=== PATIENT | female | born 1960 | race Caucasian/White ===

== ENCOUNTER 2020-12-06 09:23 | Emergency (ER) | payer OTHER, SELFPAY ==
[2020-12-06] VITALS (7 sets, daily range): BP systolic 130–178; BP diastolic 73–99; PULSE 80–114; RESP 14–25; TEMP 35.5–36.9; O2SAT 93–97; BMI 37.4
--- NOTE | 2020-12-06 09:56 | RAD_ITS ---
STUDY: X-RAY CHEST REASON FOR EXAM: Female, 60 years old. Chest pain TECHNIQUE: Single AP portable view of the chest. COMPARISON: None. FINDINGS: EKG electrodes are seen. Mild increased markings in the lateral right mid lung as well as in the lateral aspect of the left upper lobe. Early infiltrate should be ruled out. There is no demonstrated pleural abnormality. Normal size heart. Normal mediastinum and jorje. Normal visualized pulmonary arteries. There is atherosclerotic tortuosity of the aortic arch and descending thoracic aorta. Normal visualized thoracic spine. Normal visualized ribs, clavicles, and shoulders. There is no demonstrated abnormality of the visualized soft tissue structures of the upper abdomen. RAD/Chest 1 View (Portable) IMPRESSION: Findings suggestive of early infiltrates in the lateral aspect of the right midlung as well as in the peripheral lateral aspect of the left upper lobe. Follow-up is suggested. Electronically Signed: Ananda Isaac MD at 10:57 EDT , Service support ,
--- NOTE | 2020-12-06 09:56 | EKG12_ITS ---
Test Reason : SOB Blood Pressure : / mmHG Vent. Rate : 089 BPM Atrial Rate : 089 BPM P-R Int : 160 ms QRS Dur : 078 ms QT Int : 366 ms P-R-T Axes : 040 -10 -10 degrees QTc Int : 445 ms Normal sinus rhythm Normal ECG Confirmed by KENDY MAYA, FAUSTO ([id number]), editorial manager DOMINGA JENSEN ([id number]) on 12/07/2020 9:22:41 AM Referred By: FRED Confirmed By:FAUSTO LARRY MD
--- NOTE | 2020-12-06 09:56 | EDS_ITS ---
HPI History of Present Illness Chief Complaint: Shortness of Breath Informant: patient Onset/Context/Timing Onset: Days Context: gradual Timing: Continuous Quality: Positive for Dyspnea on exertion Current Severity: Mild Maximum Severity: Mild Worsened by: Exertion and Lying flat Associated Symptoms chills; Negative for cough, fever or sore throat Chest Pain: Positive for None Narrative Narrative: 60-year-old female states she is currently on no medications and really has no sniffing past medical history. No history of cardiac disease. No history of DVT or PE or recent risk factors. States she does not felt well for about a week. She has been off of work for about a week. This has had subjective chills but no fever. And she has been short of breath. Denies any chest pain or any hemoptysis. She denies any leg pain or swelling. PE Risk Factors: Negative for Cancer, OCP + Smoking + > 35, Prior DVT or PE, Recent immobilization, Recent surgery and Recent travel Prior similar symptoms: No Recent Illness/Hospitalization: No PFSH PFSH Medical History no medical history no medical history Home Medications dexamethasone [Decadron] 6 mg PO DAILY 7 Days #7 tab 12/06/20 [Rx Last Taken Unknown] Allergy/AdvReac Type Severity Reaction Status Date / Time No Known Allergies Allergy Verified 12/06/20 09:26 Social History Smoking Status: Former smoker ROS ROS ED Review of Systems ROS Unobtainable: Denies due to encephalopathy Constitutional Constitutional ED: Reports chills; Denies fever(s) Eyes Eyes: Denies blurry vision or change in vision ENT ENT ED: Denies ear pain or sore throat Cardiovascular Cardiovascular: Denies chest pain or palpitations Respiratory/Chest Respiratory/Chest: Reports dyspnea; Denies cough Gastrointestinal Gastrointestinal: Denies abdominal pain, diarrhea, nausea or vomiting Genitourinary Genitourinary ED: Denies dysuria or hematuria Musculoskeletal Musculoskeletal: Denies myalgias Integumentary Denies rash Neurologic Neurologic: Denies headache(s) Psychiatric Psychiatric: Denies depression Endocrine Endocrinology: Denies polyuria Hematologic/Lymphatic Hematologic/Lymphatic: Denies easy bruising Allergic/Immunologic Allergic/Immunologic ED: Denies urticaria EXAM Physical Exam Narrative Exam Narrative: 60-year-old female no acute distress. Vital signs stable afebrile. Pulse ox 97% on room air no signs hypoxia. HEENT exam unremarkable. Lungs are clear equal symmetrical. Heart regular rhythm rate about 100 no murmur. Abdomen soft nontender. Moving all 4 extremities. Calves are nontender without edema or cords. Neurologically she is awake alert with no focal motor deficits. Const Vital Signs: 12/06/20 09:24 12/06/20 09:36 12/06/20 10:08 Temperature 96 F L 98.2 F Temperature Source Temporal Oral Pulse Rate 114 H 97 Respiratory Rate 18 21 H Respiratory Effort Short of Breath Respiratory Depth Normal Respiratory Pattern Normal Blood Pressure 178/99 H 178/99 H Blood Pressure Mean 125 125 Pulse Ox 97 95 95 Oxygen Delivery Method Room Air Room Air Room Air 12/06/20 11:36 12/06/20 13:05 12/06/20 14:20 Temperature 98.4 F 98.3 F Temperature Source Oral Oral Pulse Rate 84 80 85 Respiratory Rate 14 25 H 21 H Respiratory Effort Respiratory Depth Respiratory Pattern Blood Pressure 161/89 H 130/73 H 149/91 H Blood Pressure Mean 113 92 110 Pulse Ox 94 95 93 Oxygen Delivery Method Room Air Room Air Room Air Positive well nourished and well developed; Negative for cachectic, contractures or unkempt General Appearance ED: well developed and NAD; Negative for unkempt, cachectic, contractures or pallor Nutritional Appearance: Negative for cachectic HEENT Reports moist mucous membranes atraumatic; Negative for trauma or tenderness Eyes PERRL and EOMs intact bilaterally Neck no lymphadenopathy, supple, no meningeal signs and no JVD General: Negative for tenderness Resp normal respiratory effort and clear to auscultation bilaterally Auscultation: Negative for rales, rhonchi or wheezes Cardio regular rate, regular rhythm, S1 normal heart sound, S2 normal heart sound and no murmurs GI non-tender, non-distended and no masses Auscultation: normoactive bowel sounds Palpation: soft; Negative for tender, guarding or rebound tenderness present Back/Spine no CVA tenderness and normal to inspection Extremity normal to inspection General Extremety ED: Negative for edema or tenderness General Extremity: Negative for edema Neuro oriented x3 and CN's II-XII intact bilaterally Sensorium / Orientation: alert, oriented to person, oriented to place and oriented to time; Negative for confused, lethargic or stuporous Motor Exam: strength 5/5 throughout Psych mental status grossly normal Appearance: Negative for unkempt Mood & Affect: Negative for depressed or tearful Thought Process: No normal thought process Skin no wounds and No skin turgor normal General Skin Exam: Negative for jaundice or pallor Lesions: no lesions Rashes: no rashes MDM MDM MDM Narrative Medical decision making narrative: 60-year-old complaint shortness of breath. This may be viral illness she will be tested for Covid. Also she undergo cardiac work-up. She has no DVT or PE risk factors or history. Repeat exam patient doing well at 2:40 PM. We are going to start her on daily Decadron. She can be outpatient follow-up. She is clinically doing well. She meets no criteria for admission and she is too far into her symptoms for monoclonal antibody therapy. Lab Data Attestation: I reviewed the patient's lab results. Lab results narrative: CBC normal white count 8 hemoglobin 14.8. Electrolytes potassium 3.1 gap 9 normal BUN and creatinine. Glucose of 113. Troponin negative at 9 Labs: Laboratory Results - last 24 hr 12/06/20 12/06/20 10:03 10:03 WBC 8.1 RBC 5.08 Hgb 14.8 Hct 42.9 MCV 84.4 MCH 29.1 MCHC 34.5 RDW Std Deviation 38.4 RDW Coeff of Ezequiel 12.4 Plt Count 261 MPV 10.2 Immature Gran % (Auto) 0.600 Neut % (Auto) 74.0 H Lymph % (Auto) 14.3 L [place] % (Auto) 9.8 Eos % (Auto) 1.1 Baso % (Auto) 0.2 Absolute Neuts (auto) 6.0 Absolute Lymphs (auto) 1.16 Nucleated RBC % 0 Sodium 138 Potassium 3.1 L Chloride 103 Carbon Dioxide 26.0 Anion Gap 9 BUN 10 Creatinine 0.72 Estim Creat Clear Calc 79.79 Est GFR (MDRD) Af Amer 106 Est GFR (MDRD) Non-Af 87 BUN/Creatinine Ratio 13.9 Glucose 113 H Calcium 8.9 Troponin I High Sens 9 Radiography Chest X-Ray - ED: 1 View, Read by ED Physician, Read by Radiologist, Mediastinum, Right Infiltrate and Left Infiltrate Diagnostic Testing: Clinical Impression(s) from Imaging Studies Chest X-Ray 12/06/20 09:56 IMPRESSION: Findings suggestive of early infiltrates in the lateral aspect of the right midlung as well as in the peripheral lateral aspect of the left upper lobe. Follow-up is suggested. Electronically Signed: Ananda Isaac MD at 10:57 EDT , Service support , Chest x-ray single view portable interpreted by the radiologist and myself shows bilateral infiltrates consistent with possible Covid pneumonitis. Rhythm Strip Rhythm Strip: Sinus Rhythm Ectopy: None EKG Initial EKG: Attestation: I personally reviewed and interpreted this EKG as follows: Interpretation: Sinus Rhythm and No Acute Injury Pattern Comments: Normal sinus rhythm rate 89 no acute signs of MN or ischemia. Discharge Plan Triage Chief Complaint: Shortness of Breath ED Provider: Rhett Ferraro Dx/Rx/DC Orders Clinical Impression: COVID-19 Instructions: Human Coronaviruses Prescriptions: New dexamethasone [Decadron] 6 mg tablet 6 mg PO DAILY 7 Days Qty: 7 RF: 0 Primary Care Provider: Cristobal Azul Referrals: Cristobal Azul MD [Primary Care Provider] - 1 Week if not improving Activity Restrictions/Additional Instructions: Clinically I think you have COVID-19. Your rapid antigen test was negative. We also sent off a Covid PCR test which will take several hours to run. You will be treated with daily Decadron which is a steroid. Follow-up with your doctor if not improving or return emergency department if you are feeling a lot worse. Disposition Disposition: Home, Self Care
--- NOTE | 2020-12-06 09:59 | NURSING ---
NO OLD EKGS
[2020-12-06 10:18] LABS: Absolute Lymphocyte Count 1.16 X10^3/uL (0.83-4.51); Basophil# 0.02 X10^3/uL; Basophil% 0.2 % (0-1); Eosinophil# 0.09 X10^3/uL; Eosinophils% 1.1 % (0-5); Hematocrit 42.9 % (37-47); Hemoglobin 14.8 g/dL (12.0-15.0); Lymphocyte # 1.16 X10^3/ul (0.83-4.51); Lymphocyte % 14.3 % (19-41); Mean Corp Hgb Conc 34.5 g/dL (32-36); Mean Corpuscular Hgb 29.1 pg (27.0-32.0); Mean Corpuscular Volume 84.4 fL (81-99); Mean Platelet Vol. 10.2 fl (6.2-12.0); Monocyte# 0.79 X10^3/uL; Monocyte% 9.8 % (0-10); NRBC Flagged by Analyzer 0 % (0-5); Neutrophil # 5.98 X10^3/uL (2.7-7.7); Platelet Count 261 K/mm3 (150-450); RBC Distribution Width CV 12.4 % (11.6-14.6); RBC Distribution Width SD 38.4 fl (35.1-43.9); Red Blood Count 5.08 M/mm3 (4.2-5.4); White Blood Count 8.1 K/mm3 (4.4-11.0)
[2020-12-06 10:34] LABS: Anion Gap 9 (5-15); BUN 10 mg/dL (7-18); BUN/Creat Ratio 13.9 RATIO (10-20); Calcium,Total 8.9 mg/dL (8.5-10.1); Chloride 103 mmol/L (98-107); Creatinine, Serum 0.72 mg/dL (0.55-1.02); EST Glomerular Filtration Rate 87 mL/min (>60); Est Glom Filt Rate - Afr Amer 106 mL/min (>60); Estimated Creatinine Clearance 79.79 ml/min; Glucose 113 mg/dL (74-106); Potassium 3.1 mmol/L (3.5-5.1); Sodium Level 138 mmol/L (136-145); Troponin-I HS 9 pg/mL (3.0-54.0)
--- NOTE | 2020-12-06 15:32 | ED.RN ---
This nurse received call from [facility] stating that they are unable to run the PCR covid test with the sample sent previously and that a new sample needs to be obtained. This nurse called and left message for the patient with request that she come back in to the ED.
== END 2020-12-06 14:56 | disposition home or self-care (01) ==
PROVIDERS: Emergency Provider Emergency Medicine; PCP Family Medicine
DX: U07.1 COVID-19 (principal); Z87.891 Personal history of nicotine dependence
CPT/HCPCS: 71045; 80048; 84484; 85025; 87426; 93005; 99285

== ENCOUNTER → 2021-09-02 | Outpatient (CLI) | payer OTHER, SELFPAY ==
[2021-09-02 11:45] LABS: ALB/GLOB Ratio 0.8 RATIO (0.9-2.4); AST(SGOT) 22 U/L (15-37); Alanine Aminotransfer ALT/SGPT 32 U/L (13-56); Albumin, Serum 3.4 g/dL (3.2-5.0); Alkaline Phosphatase 78 U/L (45-117); Anion Gap 4 (5-15); BUN 13 mg/dL (7-18); BUN/Creat Ratio 18.8 RATIO (10-20); Calcium,Total 8.7 mg/dL (8.5-10.1); Chloride 110 mmol/L (98-107); Cholesterol 172 mg/dL (200); Creatinine, Serum 0.69 mg/dL (0.55-1.02); EST Glomerular Filtration Rate 92 mL/min (>60); Est Glom Filt Rate - Afr Amer 111 mL/min (>60); Globulin 4.1 g/dL (2.2-4.2); Glucose 97 mg/dL (74-106); High Density Lipoprotein 54 mg/dL; Protein, Total 7.5 g/dL (6.4-8.2); Sodium Level 140 mmol/L (136-145); Triglycerides 129 mg/dL; Very Low Density Lipoprotein 26 mg/dL (5-40)
== END | disposition home or self-care (01) ==
LOC: LAB 09:39
PROVIDERS: PCP Internal Medicine; Referring Provider Internal Medicine; Visit Provider Internal Medicine
DX: Z13.6 Encounter for screening for cardiovascular disorders (principal)
CPT/HCPCS: 36415; 80053; 80061

== ENCOUNTER → 2021-09-15 | Outpatient (CLI) | payer OTHER, SELFPAY ==
--- NOTE | 2021-09-15 08:20 | BI_ITS ---
MAMMOGRAPHY - BILATERAL SCREENING REASON FOR EXAM: Female, 60 years old. Routine annual screening examination. PERTINENT HISTORY: Non-contributory. TECHNIQUE: Digital bilateral breast diamante (3D mammographic acquisition) in the CC and MLO projections. 2-D mediolateral oblique (MLO) and craniocaudad (CC) views of both breasts were obtained. CAD: Full Field Digital Mammography with Computer Added Detection was performed. COMPARISON: Comparison is made with prior chest examination dated 01/18/2015. FINDINGS: Breast Composition: There are scattered areas of fibroglandular density. There are no dominant masses or suspicious calcifications. There is a 4.6 mm x 6.5 mm well-defined nodule in the upper lateral anterior aspect of the right breast. Correlation with ultrasound is recommended. Stable small bilateral axillary lymph. No other significant abnormalities are identified. BI/SCRN MAMM (CAD)W/DIAMANTE BILAT IMPRESSION: 4.6 mm x 6.5 mm well-defined nodule in the upper lateral anterior aspect of the right breast. Correlation with ultrasound is recommended. ASSESSMENT CATEGORY: BIRADS Category 0: Incomplete. Need additional imaging evaluation. A letter regarding these results will be sent to the patient by the facility within 30 days. Approximately 10% of breast cancers are not detected by mammography. A normal mammogram should not delay biopsy of a clinically suspicious abnormality. [id number] Electronically Signed: Ananda Isaac MD at 9:40 EDT ,
== END | disposition home or self-care (01) ==
LOC: OPBI 08:19
PROVIDERS: PCP Internal Medicine; Referring Provider Internal Medicine; Visit Provider Internal Medicine
DX: Z12.31 Encounter for screening mammogram for malignant neoplasm of breast (principal); N63.21 Unspecified lump in the left breast, upper outer quadrant
CPT/HCPCS: 77063; 77067

== ENCOUNTER → 2021-09-20 | Outpatient (CLI) | payer OTHER, SELFPAY ==
--- NOTE | 2021-09-20 14:20 | US_ITS ---
STUDY: ULTRASOUND BREAST - RIGHT REASON FOR EXAM: Female, 60 years old. Abnormal mammogram TECHNIQUE: Axial and longitudinal images of the RIGHT breast were performed with a high resolution ultrasound transducer. # OF IMAGES: 17 COMPARISON: Mammogram from 09/15/2021 FINDINGS: RIGHT Breast: Ultrasound evaluation of the right breast shows 2 separate simple cysts. One is at 10 o''clock, 6 cm from the nipple measuring 0.7 x 0.5 x 0.4 cm, the other is at 9 o''clock, 8 cm from the nipple measuring 0.4 x 0.5 x 0.4 cm. Both are anechoic with smooth internal borders and posterior enhancement. There is normal dense glandular tissue, there is no architectural distortion, suspicious shadowing calcifications or solid shadowing lesion. US/Breast Limited Unilateral IMPRESSION: Simple cysts, no suspicious sonographic findings, patient should return for screening mammogram in 1 year ASSESSMENT CATEGORY: BIRADS Category 2: Benign. A letter regarding these results will be sent to the patient by the facility within 30 days. Electronically Signed: Gregorio Kirby MD at 8:04 EDT ,
== END | disposition home or self-care (01) ==
LOC: OPUS 14:17
PROVIDERS: PCP Internal Medicine; Visit Provider Internal Medicine
DX: R92.8 Other abnormal and inconclusive findings on diagnostic imaging of breast (principal)
CPT/HCPCS: 76642

== ENCOUNTER → 2022-01-11 | Outpatient (CLI) | payer OTHER, SELFPAY ==
[2022-01-20 10:17] LABS: HPV APTIMA, High Risk Negative (Negative)
== END | disposition home or self-care (01) ==
LOC: LABSPEC 13:41
PROVIDERS: PCP Internal Medicine; Visit Provider Nurse Practitioner Women's Health
DX: Z12.4 Encounter for screening for malignant neoplasm of cervix (principal)
CPT/HCPCS: 87624; 88175; G0145

== ENCOUNTER 2022-01-16 08:59 | Day surgery (SDC) | payer OTHER, SELFPAY ==
--- NOTE | 2022-01-16 | IMM_PTH ---
PATIENT: RODY CAPPS LOC: EN U#:[id number] AGE/SX: 61/F ROOM: RE01/16/[address]: Dr. Edwin Jarquin DO : 1960 BED: DIS: 01/16/2022 SPEC #: [id number] RECD: 01/17/22 11:48 STATUS: MEJIA REQ #: [id number] HANNA: 01/16/22 00:[address]: Edwin Jarquin DEPT: IMMUNOHISTOCHEMISTRY RECD BY: Soniya Aragon ENTERED: 01/17/22 11:49 SP TYPE: IMMUNO OTHR DR: Dr. Kay Galan MD Tissues: Rectum, NOS Procedures: MSH2 (add) MLH-1 (add) MSH6 (add) Anti-PMS2 (add) CK20 (add) CK7 (add) CHAU-2 (add) KI-67 (add) P53 (add) Pankeratin (initial) CDX2 (add) PHYSICIAN & [address] [address] SPECIMEN INFORMATION: Tissue Source: Rectal mass Clinical Info: Screening Specimen Number: [id number] CPT code: 80053, 34011 x10 METHODOLOGY: Deparaffinized sections of prefer/formalin-fixed tissue or PAP/DQ stained slides are incubated with monoclonal/polyclonal antibodies/oligonucleotide probes. Localization is made via biotin free immunoperoxidase method. Appropriate controls are performed and reacted as expected. Results on target cell population are indicated in the following table: RESULTS: ANTIBODY / CLONE RESULT AE1-3 (AE1/AE3/PCK26) positive CK7 (OV-TL12/30) negative CK20 (KS20.8) negative CHAU-2 (SP21) positive CDX2 (BYM1851P) positive MLH-1 (M1) positive MSH2 (25D12) positive MSH6 (44) positive PMS2 (TPO8021) positive Ki-67 (30-9) positive, moderate P53 (DO-7) negative These tests were developed and their performance characteristics determined by [facility]. They may not have been cleared or approved by the U.S. Food and Drug Administration. The FDA has determined that such clearance or approval is not necessary. The above immunohistochemical/dualISH markers are ordered and reviewed by the Pathologist. INTERPRETATION: Rectal mass, biopsy: Invasive adenocarcinoma. Result of Microsatellite Instability Study: Negative (no loss of mismatch protein; no microsatellite instability detected). AM:isa 01/18/2022
--- NOTE | 2022-01-16 09:09 | HP.PCM_ITS ---
[facility] - General General Date of Admission: 01/16/22 Date of Service: 01/16/22 Chief Complaint: Screening colonscopy HPI Narrative RODY CAPPS, is a 61 F who presents today for screening colonoscopy. She has no significant past medical history. She denies any abdominal pain. She denies any nausea. Denies any chest pain or shortness of breath. He denies any weakness. She denies any headache, cough or recent illnesses. She does not hav e any problems with her bowels. She is not have any bleeding per rectum. She denies any nausea or vomiting recently. All other 16 review of systems are negative except as per body mentioned HPI. [facility] Medical History (Updated 01/16/22 @ 09:[address] 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 Smoking Status: Current every day smoker tobacco type: cigarettes Tobacco: How many years used: 30 Electronic Cigarette Use: not used alcohol intake: current alcohol intake frequency: holidays/special occasions only substance use type: does not use what type of physical activity do you participate in: none do you feel safe at home: Yes ROS Review of Systems ROS Unobtainable: other Constitutional Constitutional: Denies fatigue, fever(s), poor appetite, weight gain or weight loss ENT HEENT: Denies mouth lesions Cardiovascular Cardiovascular: Denies abdominal bloating, abdominal edema or abdominal pain Respiratory/Chest Respiratory/Chest: Denies change in mental status, change in phlegm color, chest congestion or chest tightness Gastrointestinal Gastrointestinal: Denies belching, bloating, change in bowel habits, change in stool character, chewing difficulty, coffee ground emesis, constipation, cramping, diarrhea, dyspepsia, dysphagia, early satiety, excessive flatus, fecal incontinence, heartburn, hematemesis, hematochezia, hemorrhoids, loose stools, melena, nausea, odynophagia, rectal bleeding, tenesmus, vomiting or weight changes Genitourinary Genitourinary: Denies abdominal discomfort, burning urination or itching Musculoskeletal Musculoskeletal: Reports as per HPI; Denies muscle weakness or myalgias Integumentary Integumentary: Denies jaundice Neurologic Neurologic: Denies lack of coordination or weakness Psychiatric Psychiatric: Denies confusion, depression, memory loss, mood swings, paranoia or suicidal ideation Endocrine Endocrinology: Denies systems reviewed and no addt'l complaints, except as documented Hematologic/Lymphatic Hematologic/Lymphatic: Denies anemia, easy bleeding, easy bruising or lymphadenopathy Allergic/Immunologic Allergic/Immunologic: Denies systems reviewed and no addt'l complaints, except as documented Physical Exam Const alert General Appearance: cooperative Orientation / Consciousness: oriented to person HEENT hearing grossly normal bilaterally Head and Scalp: normal to inspection Face and Sinus: face symmetric Nose: external nose normal Mouth: oral and palatal mucosa normal Eyes conjunctivae normal General Eye: normal appearance of both eyes Neck full ROM General: normal visual inspection Lymph Lymphatic: no lymphadenopathy noted Chest inspection of chest normal and palpation of chest normal Chest: symmetrical chest wall rise Resp normal respiratory effort Effort and Inspection: able to speak in complete sentences Cardio regular rate GI non-distended Percussion: normal to percussion Rectal Exam: deferred Neuro Speech: speech normal Gait (Neuro): normal gait Assessment & Plan Assessment/Plan (1) Encounter for screening colonoscopy: PLAN: 61-year-old arrives here for screening colonoscopy. She was explained alternatives, risk, benefits including not withstanding bleeding, infection, sepsis, perforation, need for emergent surgery . She will have an ASA of 2.
[2022-01-16] MEDS: Lactated Ringers 1,000 ML 15 ML IV (09:20)
[2022-01-16 09:30] VITALS: BP 151/100; PULSE 78; RESP 12; TEMP 36.4; O2SAT 93; BMI 39.6
--- NOTE | 2022-01-16 10:30 | COLBX_PTH ---
PATIENT: RODY CAPPS LOC: EN U#:[id number] AGE/SX: 61/F ROOM: RE01/16/[address]: Dr. Edwin Jarquin DO : 1960 BED: DIS: 01/16/2022 SPEC #: [id number] RECD: 01/16/22 11:30 STATUS: MEJIA HAM #: [id number] HANNA: 01/16/22 10:[address]: Edwin Jarquin DEPT: SURGICAL PATHOLOGY RECD BY: Tasha Carrillo ENTERED: 01/16/22 12:28 SP TYPE: COLON BX OT DR: Dr. Kay Galan MD Tissues: Rectum, NOS Procedures: Surgery Specimen Level IV HEADER OPERATION: Colonoscopy with biopsy ? open access (MAC) PRE-OP DIAGNOSIS: Screening TISSUE SUBMITTED: Rectal mass MICROSCOPIC DIAGNOSIS Rectal mass, biopsy: Invasive well to moderately differentiated adenocarcinoma. AM:isa 01/17/2022 COMMENT Immunohistochemistry ([id number]) supports the above diagnosis. Case has been reviewed in consultation with Dr. Freedman who concurs with the above diagnosis. IDC:[email or web address] MICROSCOPIC DESCRIPTION Slides are reviewed. GROSS DESCRIPTION Received in fixative is one container labeled with the patient's name and designated rectal mass. The specimen consists of multiple irregular fragments of light marina soft tissue that in aggregate measure 1.5 x 0.5 x 0.1 cm. The specimen is totally submitted in one cassette. / YUDI:isa 01/16/2022 TC:0 CPT: 52317 ADDENDUM ADDENDUM ADDENDUM ADDENDUM ADDENDUM ADDENDUM ADDENDUM ADDENDUM ADDENDUM ADDENDUM 03/08/2022 15:21 ADDENDUM 03/08/2022 15:21 ADDENDUM 03/08/2022 15:21 ADDENDUM 03/08/2022 15:21 ADDENDUM 03/08/2022 15:21 This addendum is added to incorporate an outside pathology consultation report. The case was examined at [facility] (#[id number]) and the following diagnosis was rendered. Rectum, mass, biopsy: Invasive well to moderately differentiated adenocarcinoma. Please see complete above mentioned consultation report in EMR
--- NOTE | 2022-01-16 11:14 | OP.COLON_ITS ---
Patient Name: Sydnee Baez Procedure Date: 01/16/2022 10:39 AM Date of : 1960 Age: 61 Procedure: Colonoscopy Indications: Screening for colorectal malignant neoplasm Providers: Edwin Jarquin DO Medicines: Monitored Anesthesia Care Patient Profile: This is a 61 year old female. Refer to note in patient chart for documentation of history and physical. Last Colonoscopy: date unknown. Complications: No immediate complications. Procedure: Pre-Anesthesia Assessment: - Prior to the procedure, a History and Physical was performed, and patient medications and allergies were reviewed. The patient is competent. The risks and benefits of the procedure and the sedation options and risks were discussed with the patient. All questions were answered and informed consent was obtained. Patient identification and proposed procedure were verified by the physician in the pre-procedure area. Mental Status Examination: alert and oriented. Airway Examination: normal oropharyngeal airway and neck mobility. Respiratory Examination: clear to auscultation. CV Examination: normal. Prophylactic Antibiotics: The patient does not require prophylactic antibiotics. Prior Anticoagulants: The patient has taken no previous anticoagulant or antiplatelet agents. ASA Grade Assessment: II - A patient with mild systemic disease. After reviewing the risks and benefits, the patient was deemed in satisfactory condition to undergo the procedure. The anesthesia plan was to use moderate sedation / analgesia (conscious sedation). Immediately prior to administration of medications, the patient was re-assessed for adequacy to receive sedatives. The heart rate, respiratory rate, oxygen saturations, blood pressure, adequacy of pulmonary ventilation, and response to care were monitored throughout the procedure. The physical status of the patient was re-assessed after the procedure. After I obtained informed consent, the scope was passed under direct vision. Throughout the procedure, the patient's blood pressure, pulse, and oxygen saturations were monitored continuously. The adult colonoscope was introduced through the anus and advanced to the cecum, identified by appendiceal orifice and ileocecal valve. The colonoscopy was performed without difficulty. The patient tolerated the procedure well. The quality of the bowel preparation was good. Scope In: 10:55:03 AM Scope Out: 11:06:22 AM Total Procedure Duration Time 0 hours 11 minutes 19 seconds Findings: The perianal and digital rectal examinations were normal. An ulcerated non-obstructing large mass was found in the rectum. The mass was non-circumferential. The mass measured four cm in length. In addition, its diameter measured five mm. No bleeding was present. This was biopsied with a cold forceps for histology. Verification of patient identification for the specimen was done. Estimated blood loss was minimal. Many small and large-mouthed diverticula were found in the recto-sigmoid colon and sigmoid colon. No additional abnormalities were found on retroflexion. Non-bleeding hemorrhoids were found during retroflexion. The hemorrhoids were small and Grade II (internal hemorrhoids that prolapse but reduce spontaneously). Impression: - Likely malignant tumor in the rectum. Biopsied. - Diverticulosis in the recto-sigmoid colon and in the sigmoid colon. Recommendation: - Discharge patient to home. - Resume previous diet. - Continue present medications. - Await pathology results. - Repeat colonoscopy for surveillance based on pathology results. - Return to referring physician at appointment to be scheduled. Procedure Code(s): --- Professional --- 87939, Colonoscopy, flexible; with biopsy, single or multiple CPT copyright 2017 [employer]. All rights reserved. The codes documented in this report are preliminary and upon automotive parts manager review may be revised to meet current compliance requirements. Edwin Jarquin DO 01/16/2022 11:14:04 AM This report has been signed electronically. Number of Addenda: 0 Note Initiated On: 01/16/2022 10:39 AM
--- NOTE | 2022-01-16 11:14 | OP.CCLET_ITS ---
01/16/2022 Kay Galan Md Re : Colonoscopy procedure for Sydnee Baez Dear Adama This procedure was performed on Sunday, January 16, 2022. My impressions and recommendations are as follows: Impressions : - Likely malignant tumor in the rectum. Biopsied. - Diverticulosis in the recto-sigmoid colon and in the sigmoid colon. Recommendations : - Discharge patient to home. - Resume previous diet. - Continue present medications. - Await pathology results. - Repeat colonoscopy for surveillance based on pathology results. - Return to referring physician at appointment to be scheduled. My findings are described in the full procedure note, which is enclosed. If I can be of further assistance, please feel free to contact me at . Sincerely, Edwin Jarquin, 01/16/2022 11:14:04 AM This report has been signed electronically.
[2022-01-16 11:15] VITALS: BP 123/71; BP 151/100; PULSE 76; RESP 14; TEMP 37.1; O2SAT 95
[2022-01-16 11:20] VITALS: BP 136/87; BP 151/100; PULSE 78; RESP 14; O2SAT 95
[2022-01-16 11:25] VITALS: BP 151/100; BP 153/85; PULSE 75; RESP 14; TEMP 36.7; O2SAT 95
[2022-01-16 11:43] VITALS: BP 151/100; BP 153/85; PULSE 75; RESP 14; TEMP 36.7; O2SAT 95
== END 2022-01-16 11:58 | disposition home or self-care (01) ==
LOC: EN 09:03 → AC 09:04
PROVIDERS: PCP Internal Medicine; Referring Provider Internal Medicine; Visit Provider Internal Medicine Gastroenterology
PROC: 0DJD8ZZ Inspection of Lower Intestinal Tract, Via Natural or Artificial Opening Endoscopic (ICD-10-PCS; CPT 45378; principal; 2022-01-16 10:25)
DX: Z12.11 Encounter for screening for malignant neoplasm of colon (principal); C20 Malignant neoplasm of rectum; K57.30 Diverticulosis of large intestine without perforation or abscess without bleeding; K64.1 Second degree hemorrhoids; F17.210 Nicotine dependence, cigarettes, uncomplicated; Z78.0 Asymptomatic menopausal state; Z86.16 Personal history of COVID-19; Z80.0 Family history of malignant neoplasm of digestive organs
CPT/HCPCS: 45380; 88305; 88341; 88342; J7120; J2405

== ENCOUNTER → 2022-01-24 | Outpatient (CLI) | payer OTHER, SELFPAY ==
--- NOTE | 2022-01-24 15:15 | MRI_ITS ---
EXAM: MR PELVIS WITHOUT AND WITH INTRAVENOUS CONTRAST CLINICAL INDICATION: STAGING RECTAL CANCER TECHNIQUE: Multiplanar and multisequence MR images of the pelvis without and with intravenous contrast. This report was created using walkby report generation technology. CONTRAST: IV 23CC CLARISCAN COMPARISON: None. FINDINGS: BOWEL: 1 cm wall thickening of the distal 4 cm of the rectum. There is loss of the defined muscularis propria along the anterior and right lateral aspect of the rectal wall suggesting T3 lesion. No involvement of the anal sphincter. INTRAPERITONEAL SPACE: Normal. No ascites or other fluid collection. BLADDER: Normal. REPRODUCTIVE: Uterus is enlarged measuring 12.4 x 6.5 x 6.2 cm and contains multiple large fibroids measuring up to 4.5 cm in maximum diameter. BONES/JOINTS: Unremarkable. LYMPH NODES: 5 mm nodule noted within the right anterolateral mesorectal tissues tissues adjacent to the rectal lesion. Additional nodes measuring up to 1.2 cm in maximum diameter along the more superior portion of the perirectal space which appear to enhance with contrast suspicious for metastasis. No iliac adenopathy identified. MRI/Pelvis W/WO Contrast IMPRESSION: 1. Tumor involvement of the distal 4 cm of the rectum. Involvement of the anterior and right lateral muscularis propria suggesting T3 lesion. Mildly enlarged perirectal nodes suggestive of regional metastasis. 2. Large fibroid uterus. Electronically Signed: Demetri De León MD at 8:58 EST ,
== END | disposition home or self-care (01) ==
LOC: MRI 14:51
PROVIDERS: PCP Internal Medicine; Visit Provider Internal Medicine Hematology & Oncology
DX: C20 Malignant neoplasm of rectum (principal)
CPT/HCPCS: 72197; A9575

== ENCOUNTER 2022-02-10 05:58 | Day surgery (SDC) | payer OTHER, SELFPAY ==
[2022-02-10] VITALS (7 sets, daily range): BP systolic 137–156; BP diastolic 82–95; PULSE 72–84; RESP 16–18; TEMP 36.3–37.5; O2SAT 94–98; BMI 40.3
[2022-02-10] MEDS: Lactated Ringers 1,000 ML 15 ML IV (06:49)
--- NOTE | 2022-02-10 07:08 | PCM.HP.BLA ---
History and Physical Date of Admission: 02/10/22 Intake Vital Signs ? 02/02/2214:12 Height 5 ft 7 in Weight: 253 lb BMI 39.6 BP 155/84 H Blood Pressure Location Rt brachial Position Sitting Respiration 18 Pulse 85 Pulse Source Monitor Temp 96.7 F L Temp Source Temporal Pulse Oximetry (%) 95 Oxygen Delivery Method room air Intake Visit Reasons:?PORT PLACEMENT Chief Complaint: Port Placement Enamel Pulverizer Required: No Is patient in pain?: No Allergies No Known Allergies Allergy (Verified 02/02/22 14:14) Medications NK? 11/11/21 [History Confirmed 02/02/22] PFSH Medical History? Ankle fracture COVID-19 Heartburn History of endometrial biopsy Leg cramps Post-menopausal Rectal bleeding Rectum cancer Smoker Wears glasses Surgical History? Status post hysteroscopic polypectomy Family History? Mother Hypertension Rectal cancer Arthritis Heart disease ?? ? A fibFather Melanoma ?? ? earGrandmother Breast cancer ?? ? maternal ArthritisAunt Breast cancer ?? ? maternalGrandmother Polio ?? ? paternal Social History? household members:? spouse current occupational status:? 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 Current every day smoker tobacco type: cigarettes Tobacco: How many years used:? 30 Electronic Cigarette Use:? not used how long ago did patient quit smoking:? pt reports smoking about 4 cigs/day or 1 pack per week alcohol intake:? current alcohol intake frequency: holidays/special occasions only substance use type:? does not use what type of physical activity do you participate in:? none do you feel safe at home:? Yes HPI HPI HPI: Patient is a 61-year-old female here for port placement for rectal cancer. ROS General General: Yes colon cancer; No weight change, appetite, fatigue, breast cancer or weakness HEENT HEENT: No difficulty swallowing, eye injury, eye surgery, swollen glands or hoarseness Endo Endocrine: No thyroid disease, diabetes mellitus, thyroid cancer, Hair loss, heat intolerance or cold intolerance Skin Skin: No rash or changing moles Breast Breast: No left breast lump, right breast lump, nipple discharge, breast pain, abnormal mammogram, abnormal US or breast enlargement Musc Musculoskeletal: No back problems, arthritis, rheumatoid arthritis, gout or joint pain Cardio Cardiovascular: No murmur, pacemaker, heart disease, atrial fibrillation, high blood pressure, heart attack, heart stent, palpitations, shortness of breat with exertion or chest pain Psych Psychiatric: No depression, anxiety or hearing voices Resp Respiratory: No shortness of breath, No sleep apnea, No cough, No COPD, No asthma, No emphysema and No wheezing Gastro Gastrointestinal: No abdominal pain, No nausea or vomiting, No diarrhea, No constipation, Yes blood in stool, No acid reflux, Yes hemorrhoids, No ulcers, No gallbladder problem and No black,tarry stools Manjit Hematologic: No blood thinners, No blood disorders, No bleeding, No anemia and No blood clots Neuro Neurologic: No system reviewed and no additional complaints, except as documented, No as per HPI, No abnormal gait, No abnormal hearing, No abnormal movements, No abnormal speech, No behavioral changes, No burning sensations, No confusion, No convulsions, No disequilibrium, No dizziness, No localized weakness, No frequent falls, No headache(s), No lack of coordination, No loss of vision, No memory loss, No numbness, No other visual disturbances, No radicular pain, No restless legs, No sensory deficit, No syncope, No tingling, No tremor(s), No weakness and No other Exam Const General: cooperative Orientation: alert and oriented x3 HENMT Head: normal to inspection Neck Neck: normal visual inspection and full ROM Chest Chest palpation & inspection: normal inspection of the chest Resp Effort & Inspection: normal respiratory effort Auscultation: clear to auscultation bilaterally Cardio Rate: regular rate Rhythm: regular rhythm GI Inspection: non-distended Palpation: soft and nontender Skin General: no rashes or lesions noted Neuro General: patient alert and patient oriented x3 Extrem General: full ROM Psych Appearance: grossly normal Mental Status: mental status grossly normal Assessment and Plan Assessment and Plan (1) Encounter for insertion of venous access port: ?Status:?Acute ?Plan: The patient is here for port placement for rectal cancer.? I discussed port placement with the patient in detail.? I discussed the risks including but not limited to bleeding, infection, pneumothorax.? Patient understands the risks and is willing to proceed. Sukhdev Castillo MD Pager: [facility] [address] [place] [address], [address] [place] [address] Office: I have examined the patient and the H&P has been reviewed. There are no clinical changes since date of exam.
[2022-02-10] MEDS: Cefazolin 2 GM in 0.9% Normal Saline 100 ML IV (07:21)
[2022-02-10] MEDS: Bupiv/Epi 0.5% Mpf 30 ML Vial (07:40)
--- NOTE | 2022-02-10 08:24 | RAD_ITS ---
STUDY: X-RAY CHEST REASON FOR EXAM: Female, 61 years old. CHECK PORT PLACEMENT TECHNIQUE: Single AP portable view of the chest. COMPARISON: Comparison is made with prior study 12/06/2020. FINDINGS: A right-sided lobo catheter has been placed. The tip is at the junction of the superior vena cava and right atrium. EKG electrodes are seen. The lungs are clear and expanded. There is no demonstrated pleural abnormality. Normal size heart. Normal mediastinum and jorje. Normal visualized pulmonary arteries. Normal visualized aortic arch and descending thoracic aorta. Normal visualized thoracic spine. Normal visualized ribs, clavicles, and shoulders. There is no demonstrated abnormality of the visualized soft tissue structures of the upper abdomen. RAD/CXR for Line Placement IMPRESSION: The tip of the right-sided portacatheter is at the junction of the superior vena cava and right atrium. Electronically Signed: Ananda Isaac MD at 9:33 EST ,
--- NOTE | 2022-02-10 08:55 | OP.PCM_ITS ---
Report of Operation Date of Procedure: 02/10/22 Pre-Operative Diagnosis: Need for vascular access for chemotherapy for rectal c ancer Post-Operative Diagnosis: Same Surgery/Procedure Performed:: Ultrasound and fluoroscopy guided right chest port placement utilizing right IJ Description of Procedure: After obtaining informed consent patient was brought back to the operating room MAC anesthesia was induced and the right chest and neck were prepped in normal sterile fashion. Ultrasound was used to evaluate both IJs and the right IJ was selected. Next, using a needle, the right IJ was accessed and a guidewire was passed on into the superior vena cava under fluoroscopy guidance. A small incision was made over the puncture site and the dilator introducer was placed over the guidewire. Next this was capped and the pocket was made for the port. 1% lidocaine with epinephrine was injected in the proposed port site. An incision was made with scalpel. Electrocautery was used to make a pocket under the skin and subcutaneous tissue. Hemostasis was obtained. Next, the catheter was tunneled up to the neck incision site and placed through the introducer. The peel-away introducer was removed and the position of the catheter was con firmed on fluoroscopy. Next, the catheter was trimmed and attached to the port with the locking device. Interrupted 2-0 Vicryl sutures were used to anchor the port to the chest wall and then the port was placed inside the pocket. The pocket was then flushed with saline and the port irrigated with saline. There was good blood return and the port flushed easily. Next, heparin was injected into the port. The skin was closed with subcutaneous interrupted 3-0 Vicryl sutures. A single 3-0 Vicryl sutures placed under the skin at the neck incision site. Steri-Strips were placed as well as op sites. Patient tolerated procedure well, was taken to PACU in stable condition. Chest x-ray will be obtained. Grafts/Implants Used: 8 Romansh PowerPort Admit VTE Documentation VTE Mechan Device Prophylaxis: SCD's
--- NOTE | 2022-02-10 08:56 | DCINST_ITS ---
Discharge Instructions Procedure Port-A-Cath Diet Discharge Diet: Light diet - advance as tolerated (Pain medication may cause nausea. You should typically eat light foods as you take your pain medication.) Activity Discharge Activity: Return to Normal Activity and May Shower (with your bandage in place in 1-2 days after surgery. DO NOT SHOWER WHEN YOUR PORT IS ACCESSED.) Dressing / Incision Call your doctor if your incision/area has: Continuous Slow Oozing, Sudden Increased Bleeding, Increased Pain/ Swelling, Increased Redness and Foul Smelling Discharge Call your doctor if you observe: Fever of 101 or Higher Remove Dressing in: 2 days Cleanse incision/area with: Soap & Water Follow Up Care Please Follow Up With: Sukhdev Castillo MD When: as needed [phone] Test Results: Test results from this visit will be discussed in further detail at your follow- up appointment, if applicable. Discharge Plan Admission Attending Provider: Sukhdev Castillo Primary Care Provider: Kay Galan Instructions Additional Instructions / Restrictions: Alternating ibuprofen and Tylenol for pain Discharge Orders/Prescriptions Prescriptions: No Action lidocaine-prilocaine 2.5-2.5 % cream 1 applic topical ONCE PRN (Reason: port access) 30 Days Qty: 30 2RF ondansetron 8 mg tablet,disintegrating 8 mg PO Q8H PRN (Reason: nausea and vomiting) Qty: 30 2RF Referrals / Follow Up: Kay Galan MD [Primary Care Provider] - Disposition Disposition (needs filled in before D/C Order can be placed): Home, Self Care
== END 2022-02-10 10:06 | disposition home or self-care (01) ==
LOC: SDC 05:59 → AC 06:00
PROVIDERS: PCP Internal Medicine; Referring Provider Surgery; Visit Provider Surgery
PROC: (CPT 36561; principal; 2022-02-10 07:15)
DX: Z45.2 Encounter for adjustment and management of vascular access device (principal); C20 Malignant neoplasm of rectum; E66.01 Morbid (severe) obesity due to excess calories; Z68.41 Body mass index [BMI] 40.0-44.9, adult; F17.210 Nicotine dependence, cigarettes, uncomplicated; Z86.16 Personal history of COVID-19
CPT/HCPCS: 36561; 00532; 71045; 77001; J7120; C1788

== ENCOUNTER → 2022-06-12 | Outpatient (CLI) | payer OTHER, SELFPAY ==
--- NOTE | 2022-06-12 18:00 | MRI_ITS ---
STUDY: MRI BRAIN WITH AND WITHOUT CONTRAST REASON FOR EXAM: Female, 61 years old. vision changes on chemotherapy -- concern for PRES TECHNIQUE: Standardized multiplanar fat and water weighted pulse sequences were obtained. IV Clariscan 23mL was administered for the contrast portion of the examination. COMPARISON: None. FINDINGS: Normal size of the ventricles and extra-axial spaces for the patient''s age. Minimal periventricular white matter ischemic changes. No mass effect or restricted diffusion Normal bilateral basal ganglia. Normal thalami. There is no extra-axial fluid accumulation. Normal flow voids within the major intracranial circulation suggesting patency by spin echo criteria. Normal venous enhancement. There is no enhancing intra-axial or extra-axial abnormality. Normal sella turcica, pituitary gland, infundibular stalk, optic chiasm and hypothalamus. Normal tectal plate and pineal gland. Normal midbrain, cuca and medulla. Normal cerebellum. Normal basal cisterns. Normal bilateral temporal bones. Normal bilateral internal auditory canals. No demonstrated orbital abnormality, within the constraints of a routine brain study. Normal visualized paranasal sinuses. Normal calvarium and skull base. Normal visualized soft tissue structures. Normal visualized upper cervical spine. MRI/Brain W/WO Contrast IMPRESSION: Minimal periventricular white matter ischemic changes. No evidence for acute infarct.. No definitive evidence for PRES No enhancing lesions to suggest metastatic disease Electronically Signed: Camilo Mcdermott MD at 20:00 EDT ,
== END | disposition home or self-care (01) ==
LOC: MRI 17:22
PROVIDERS: PCP Internal Medicine; Visit Provider Nurse Practitioner Family
DX: H53.9 Unspecified visual disturbance (principal); C20 Malignant neoplasm of rectum
CPT/HCPCS: 70553; A9575

== ENCOUNTER → 2022-07-01 | Outpatient (CLI) | payer OTHER, SELFPAY ==
--- NOTE | 2022-07-01 09:51 | US_ITS ---
STUDY: ABDOMINAL ULTRASOUND REASON FOR EXAM: Female, 61 years old. RUQ pain; transaminitis TECHNIQUE: Transabdominal ultrasound was performed with real-time and static eller scale imaging. TECHNICAL QUALITY: Adequate. COMPARISON: None. FINDINGS: Liver: The liver measures 18 cm. There is increased echogenicity consistent with fatty infiltration. The bile ducts are within normal limits. There is hepatic color flow. The direction of portal flow is hepatopetal. There is no demonstrated mass lesion. Portal vein measurement: Gallbladder: Normal distended gallbladder. The gallbladder wall measures 3.4 mm. There is a positive sonographic Fitzpatrick''s sign. There is no pericholecystic fluid. There are multiple echogenic structures within the gallbladder, consistent with multiple gallstones. Common Bile Duct (C.B.D.): The common bile duct measures 3.5 mm. Pancreas: Normal size of the head, body and tail of the pancreas. There is normal echogenicity of the pancreas. There is no demonstrated pancreatic mass or cyst. Spleen: Normal size of the spleen. The spleen measures 11.7 cm. Right Kidney: Normal size of the right kidney. The right kidney measures 10.0 cm. Normal renal cortex. The right cortex measures 2.0 cm. There is no demonstrated renal mass or cyst. There is no right hydronephrosis. Left Kidney: Normal size of the left kidney. The left kidney measures 11.5 cm. Normal renal cortex. The left cortex measures 1.7 cm. There is no demonstrated renal mass or cyst. There is no left hydronephrosis. Aorta: 2.4 cm I.V.C.: The IVC is patent. There is no ascites. US/Abdomen Complete IMPRESSION: Fatty liver. Cholelithiasis with positive Fitzpatrick''s sign. Thickened gallbladder wall. Electronically Signed: Marvin Mane MD at 22:46 EDT ,
== END | disposition home or self-care (01) ==
PROVIDERS: PCP Internal Medicine; Referring Provider Nurse Practitioner Family; Visit Provider Nurse Practitioner Family
DX: R74.01 Elevation of levels of liver transaminase levels (principal); R10.11 Right upper quadrant pain
CPT/HCPCS: 76700

== ENCOUNTER 2022-07-10 05:47 | Day surgery (SDC) | payer OTHER, SELFPAY ==
[2022-07-10] VITALS (9 sets, daily range): BP systolic 127–191; BP diastolic 62–89; PULSE 73–94; RESP 14–20; TEMP 36.2–37.1; O2SAT 92–94; BMI 39.3
--- NOTE | 2022-07-10 06:08 | EKG12_ITS ---
Test Reason : PRE-OP Blood Pressure : / mmHG Vent. Rate : 066 BPM Atrial Rate : 066 BPM P-R Int : 162 ms QRS Dur : 082 ms QT Int : 422 ms P-R-T Axes : 024 -09 -07 degrees QTc Int : 442 ms Normal sinus rhythm Normal ECG When compared with ECG of 06-DEC-2020 10:06, No significant change was found Confirmed by KENDY MAYA, FAUSTO ([id number]), acquisitions editor DOMINGA JENSEN ([id number]) on 07/13/2022 9:19:18 AM Referred By: Sukhdev Castillo Confirmed By:FAUSTO LARRY MD
[2022-07-10] MEDS: Lidocaine/Prilocaine HCl 5 GM Tube 1 GM TOPICAL (06:55)
--- NOTE | 2022-07-10 07:09 | HP.PCM_ITS ---
History and Physical Date of Admission: 07/10/22 Intake Vital Signs ? 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 Acute prerenal azotemia Ankle fracture COVID-19 Encounter for chemotherapy management Encounter for education GERD (gastroesophageal reflux disease) Heartburn History of endometrial biopsy Hypertension Hypokalemia Leg cramps Post-menopausal Rectal bleeding Rectum cancer Regional lymph node metastasis present Right upper quadrant pain Smoker Transaminitis Vision changes Wears glasses Surgical History? Status post hysteroscopic polypectomy Family History? Mother Hypertension Rectal cancer Arthritis Heart disease ?? ? A fibFather Melanoma ?? ? earGrandmother Breast cancer ?? ? maternal ArthritisAunt Breast cancer ?? ? maternalGrandmother Polio ?? ? paternal Social History? household members:? spouse current occupational status:? 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 Current every day smoker tobacco type: cigarettes Tobacco: How many years used:? 30 Electronic Cigarette Use:? not used how long ago did patient quit smoking:? pt reports smoking about 4 cigs/day or 1 pack per week alcohol intake:? current alcohol intake frequency: holidays/special occasions only substance use type:? does not use what type of physical activity do you participate in:? none do you feel safe at home:? Yes HPI HPI HPI: Patient is a 61-year-old female currently undergoing chemotherapy for rectal cancer. She has been having right upper quadrant pain especially after fatty foods.? Patient denies nausea or vomiting Roster entire epigastric region. ROS General General: Yes colon cancer; No weight change, appetite, fatigue, breast cancer or weakness HEENT HEENT: No difficulty swallowing, eye injury, eye surgery, swollen glands or hoarseness Endo Endocrine: No thyroid disease, diabetes mellitus, thyroid cancer, Hair loss, heat intolerance or cold intolerance Skin Skin: No rash or changing moles Breast Breast: No left breast lump, right breast lump, nipple discharge, breast pain, abnormal mammogram, abnormal US or breast enlargement Musc Musculoskeletal: No back problems, arthritis, rheumatoid arthritis, gout or joint pain Cardio Cardiovascular: Yes high blood pressure; No murmur, pacemaker, heart disease, atrial fibrillation, heart attack, heart stent, palpitations, shortness of breat with exertion or chest pain Psych Psychiatric: No depression, anxiety or hearing voices Resp Respiratory: No shortness of breath, No sleep apnea, No cough, No COPD, No asthma, No emphysema and No wheezing Gastro Gastrointestinal: Yes abdominal pain, No nausea or vomiting, No diarrhea, No constipation, No blood in stool, Yes acid reflux, No hemorrhoids, No ulcers, Yes gallbladder problem and No black,tarry stools Manjit Hematologic: No blood thinners, No blood disorders, No bleeding, No anemia and No blood clots Neuro Neurologic: No system reviewed and no additional complaints, except as documented, No as per HPI, No abnormal gait, No abnormal hearing, No abnormal movements, No abnormal speech, No behavioral changes, No burning sensations, No confusion, No convulsions, No disequilibrium, No dizziness, No localized weakness, No frequent falls, No headache(s), No lack of coordination, No loss of vision, No memory loss, No numbness, No other visual disturbances, No radicular pain, No restless legs, No sensory deficit, No syncope, No tingling, No tremor(s), No weakness and No other Exam Const General: cooperative Orientation: alert and oriented x3 HENMT Head: normal to inspection Neck Neck: normal visual inspection and full ROM Chest Chest palpation & inspection: normal inspection of the chest Resp Effort & Inspection: normal respiratory effort Auscultation: clear to auscultation bilaterally Cardio Rate: regular rate Rhythm: regular rhythm GI Inspection: non-distended Palpation: soft and nontender Skin General: no rashes or lesions noted Neuro General: patient alert and patient oriented x3 Extrem General: full ROM Psych Appearance: grossly normal Mental Status: mental status grossly normal Assessment and Plan Assessment and Plan (1) Right upper quadrant pain: ?Status:?Acute (2) Cholelithiasis: ?Status:?Acute ?Qualifiers: ?Cholelithiasis location:?gallbladder??Cholecystitis presence:?without cholecystitis??Biliary obstruction:?without biliary obstruction? Qualified Code(s):?K80.20 - Calculus of gallbladder without cholecystitis without obstruction Plan Patient has been having episodes of right upper quadrant pain that seem to come in attacks.? At the current time the patient is not having any pain.? 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 I discussed with her the possibility of having to have emergency surgery between now and then if anything worsen she should come to the ER if that does happen.? I discussed laparoscopic cholecystectomy with her and she will be booked for early next week. I discussed the procedure in detail with the patient.? I discussed the risks, benefits, and alternatives of the procedure.? I discussed the risks including but not limited to bleeding, infection, injury to surrounding organs such as the liver, bile duct, bowels.? I did discuss the possibility of having to convert to an open procedure as well as the possibility that if any injuries occurred this may necessitate further surgery at a tertiary care center. Sukhdev Castillo MD Pager: [facility] [address] [place] [address], [address] [place] [address] Office: I have seen and examined the patient and reviewed [facility] H&P, there are no changes
[2022-07-10] MEDS: Lactated Ringers 1,000 ML 15 ML IV (07:21)
[2022-07-10] MEDS: Cefotetan 2 GM in 0.9% NS 100 ML IV (07:25)
--- NOTE | 2022-07-10 07:30 | GALL_PTH ---
PATIENT: RODY CAPPS LOC: [facility] U#:[id number] AGE/SX: 61/F ROOM: RE07/10/[address]: Dr. Sukhdev Castillo MD : 1960 BED: DIS: 07/10/2022 SPEC #: [id number] RECD: 07/10/22 08:44 STATUS: MEJIA CHEEK #: [id number] HANNA: 07/10/22 07:[address]: Sukhdev Castillo DEPT: SURGICAL PATHOLOGY RECD BY: Tasha Carrillo ENTERED: 07/10/22 10:04 SP TYPE: KOURTNEY ZUNIGA DR: Dr. Kay Galan MD Tissues: Gallbladder, NOS Procedures: Surgery Specimen Level III HEADER OPERATION: Laparoscopic cholecystectomy with IOC PRE-OP DIAGNOSIS: Right upper quadrant pain, cholelithiasis TISSUE SUBMITTED: Gallbladder MICROSCOPIC DIAGNOSIS Gallbladder, cholecystectomy: Mild chronic cholecystitis, cholelithiasis and cholesterolosis. SJ:isa 07/11/2022 MICROSCOPIC DESCRIPTION Slides are reviewed. GROSS DESCRIPTION Received is one container labeled with the patient's name and designated gallbladder. The specimen consists of a gallbladder measuring 10.0 cm in length and up to 3.0 cm in diameter. The external surface is pink-marina, smooth and glistening for the most part. Focally it is granular, hemorrhagic and contains cautery artifact. The gallbladder contains green-yellow mucoid bile and multiple mulberry, orange stones measuring in aggregate 2.0 x 1.5 x 0.5 cm. A stone is also present in the cystic duct. The mucosa is bile-stained and without any mass lesions. The gallbladder wall measures up to 0.2 cm in thickness. The mucosa also shows several yellowish streaks consistent with cholesterolosis. Environmental Auditor sections from the gallbladder and the cystic duct are submitted in one cassette. / YUDI:isa 07/10/2022 TC:3 CPT: 40393
--- NOTE | 2022-07-10 07:30 | RAD_ITS ---
CLINICAL HISTORY: Female, 61 years old. Cholecystectomy PROCEDURE: CHOLANGIOGRAM - intraoperative CONSENT: Informed consent obtained SEDATION: General FLUOROSCOPY TIME (if supplied): (14.1) seconds, dose of 7.74 mGy, 89 image cine loop was obtained Placement of the catheter and the procedure were performed by: Dr. Castillo Fluoroscopy was provided by Maria Del Carmen Dean, who was present in the room time of the procedure. TECHNIQUE: (All elements of maximal sterile barrier technique followed, including US elements as applicable) After cholecystectomy, the cystic duct remnant was cannulized and contrast injected into the biliary tree. There is normal filling of the common hepatic duct, common bile duct and biliary radicles, and normal flow contrast into the duodenum. There is however subtle extravasation of contrast laterally from the cystic duct suggesting there may be a small bile leak present. RAD/Cholangiogram/ O R,Initial IMPRESSION: Subtle stream of contrast noted lateral to the cystic duct suggests the possibility of bile leak. Normal filling of the biliary radicles, common hepatic duct, and common bile duct and normal flow of contrast into the duodenum Electronically Signed: Gregorio Kirby MD at 9:29 EDT ,
[2022-07-10] MEDS: Bupivacaine 0.25% 30 ML Vial (08:15)
--- NOTE | 2022-07-10 08:41 | PCM.OPRPT ---
Report of Operation Date of Procedure: 07/10/22 Pre-Operative Diagnosis: Cholelithiasis and biliary colic Post-Operative Diagnosis: Same Surgery/Procedure Performed:: Laparoscopic cholecystectomy with cholangiograms Specimen's removed: Gallbladder Description of Procedure: After obtaining informed consent patient was brought back to the operating room. General anesthesia was induced. The abdomen was prepped and draped in usual sterile fashion. A small midline incision was made superior to the umbilicus and deepened to the level of fascia. The fascia was elevated and incised. Next the peritoneum was elevated and incised in the same fashion. Finger sweep was performed and the Jefferson trocar was placed into the abdomen. The balloon was inflated. The abdomen was inflated to 15 mmHg. Next a camera was introduced into the abdomen and the abdomen was inspected. Next under direct visualization three 5-mm ports were placed one subxiphoid and 2 subcostal. Next the gallbladder was elevated and retracted toward the right shoulder. The peritoneum was stripped from the gallbladder. The infundibulum was located and retracted laterally. Next the triangle of Calot was dissected and the cystic duct and cystic artery were identified. Cholangiograms were performed. The Payne clamp was used to clamp across the infundibulum and the catheter needle was inserted into the gallbladder. Under fluoroscopy contrast was instilled into the gallbladder and the common duct, cystic duct as well as proximal hepatic ducts were identified. There was good filling of the duodenum. There were no filling defects noted in the common bile duct. The clamp was removed as well as the needle and the infundibulum was grasped once more. Three hemolock clips were placed across the cystic duct. The cystic duct was then divided leaving 2 clips on the stump. The cystic artery was clipped and divided in the same fashion. The hook cautery was then used to take the gallbladder off of the gallbladder bed. Hemostasis was obtained. Gallbladder fossa was irrigated and no active bleeding or bile leakage was noted. Next the camera was introduced in the subxiphoid port. An Endopouch bag was placed through the umbilical port and the gallbladder was placed into it. The gallbladder was then removed through the umbilical incision. The camera was then reinserted through the umbilical port. The gallbladder fossa was inspected once more and noted to be hemostatic with no leaking bile. The abdomen was suctioned dry. The 5 mm ports were removed under direct visualization. The umbilical port was then removed and the air was removed from the abdomen. Next using an 0 Vicryl suture the umbilical fascia was closed in a [id number] fashion. The umbilical port site was irrigated local anesthetic was administered to all the incisions. All the incisions were closed with interrupted subcuticular 4-0 Monocryl sutures followed by Steri-Strips and dressings. The patient was awoken and taken to PACU in stable condition. Admit VTE Documentation VTE Mechan Device Prophylaxis: SCD's
--- NOTE | 2022-07-10 08:43 | EX.PCM.DISCH ---
Discharge Instructions Procedure Gallbladder Diet Discharge Diet: Light diet - advance as tolerated Activity Discharge Activity: May Not Drive (for 2-3 days or while taking narcotic pain medications.) and - (Do not drive, work heavy equipment or sign legal documents for 24 hours.) May shower in (days): 1 Lifting Restrictions: 20 lbs for 2 weeks Additional Activity Instructions:: Pain medication may cause nausea. You should typically eat light foods as you take your pain medications. Pain medication may also cause constipation. If this is a problem for you, please discuss with your doctor. Dressing / Incision Call your doctor if your incision/area has: Continuous Slow Oozing, Sudden Increased Bleeding, Increased Pain/ Swelling, Increased Redness and Foul Smelling Discharge Call your doctor if you observe: Fever of 101 or Higher Suture Line Care: Avoid Pulling/Pushing and Avoid Pinching/Bending Remove Dressing in: 2 days Additional Dressing/Incision Instructions:: Leave operative bandaids on for 2 days. When you remove dressing, leave Steri-Strips on until your follow-up appointment, or until the Steri-Strips fall off on their own. Follow Up Care Please Follow Up With: Sukhdev Castillo MD When: Please call to schedule 2 week follow up appointment. [phone] Test Results: Test results from this visit will be discussed in further detail at your follow-up appointment, if applicable. Discharge Plan Admission Attending Provider: Sukhdev Castillo Primary Care Provider: Kay Galan Discharge Orders/Prescriptions Prescriptions: No Action lidocaine-prilocaine 2.5-2.5 % cream 1 applic topical ONCE PRN (Reason: port access) 30 Days Qty: 30 2RF ondansetron 8 mg tablet,disintegrating 8 mg PO Q8H PRN (Reason: nausea and vomiting) Qty: 30 2RF famotidine [Acid Basting Machine Operator (famotidine)] 20 mg tablet 20 mg PO DAILY lisinopril 10 mg tablet 10 mg PO DAILY Qty: 30 1RF Referrals / Follow Up: Kay Galan MD [Primary Care Provider] - Disposition Disposition (needs filled in before D/C Order can be placed): Home, Self Care
[2022-07-10] MEDS: Acetaminophen 325 MG Tablet 650 MG PO (11:55)
== END 2022-07-10 12:45 | disposition home or self-care (01) ==
LOC: SDC 05:48 → AC 05:49
PROVIDERS: PCP Internal Medicine; Referring Provider Surgery; Visit Provider Surgery
PROC: (CPT 47610; principal; 2022-07-10 07:10)
DX: K80.10 Calculus of gallbladder with chronic cholecystitis without obstruction (principal); I10 Essential (primary) hypertension; Z86.16 Personal history of COVID-19; Z79.899 Other long term (current) drug therapy; Z87.891 Personal history of nicotine dependence
CPT/HCPCS: 47563; 74300; 76000; 88304; 93005; J7120; J2405

== ENCOUNTER → 2022-11-23 | Outpatient (CLI) | payer OTHER, SELFPAY ==
--- NOTE | 2022-11-23 10:58 | MRI_ITS ---
EXAM: MR PELVIS WITHOUT AND WITH INTRAVENOUS CONTRAST CLINICAL INDICATION: F/U RECTAL CANCER S/P CHEMO R.T. TECHNIQUE: Multiplanar and multisequence MR images of the pelvis without and with intravenous contrast. CONTRAST: IV 23 ML CLARISCAN COMPARISON: No relevant prior studies available. FINDINGS: BOWEL: Persistent thickening of the left side of the rectal wall noted approximately 10 cm from the anus which would correspond to the level of abnormal activity on recent PET scan. No apparent involvement of the muscularis propria. INTRAPERITONEAL SPACE: No adnexal mass or free pelvic fluid. BLADDER: Normal. OVARIES: Neither ovary visualized. UTERUS/CERVIX: Multiple uterine fibroids again seen all of which appear to be small in size on the current exam. BONES/JOINTS: Normal. SOFT TISSUES: See above. LYMPH NODES: Normal. No perirectal lymph nodes. MRI/Pelvis W/WO Contrast IMPRESSION: Localized rectal wall thickening as described. Electronically Signed: Demetri De León MD at 14:19 EDT ,
== END | disposition home or self-care (01) ==
PROVIDERS: PCP Internal Medicine; Referring Provider Internal Medicine Hematology & Oncology; Visit Provider Internal Medicine Hematology & Oncology
DX: C20 Malignant neoplasm of rectum (principal); C77.9 Secondary and unspecified malignant neoplasm of lymph node, unspecified
CPT/HCPCS: 72197; A9575

== ENCOUNTER → 2023-08-22 | Outpatient (CLI) | payer OTHER, SELFPAY ==
--- NOTE | 2023-08-22 10:21 | BI_ITS ---
MAMMOGRAPHY - BILATERAL SCREENING 3-D TOMOSYNTHESIS REASON FOR EXAM: Female, 62 years old. screening PERTINENT HISTORY: No significant family history. TECHNIQUE: 2-D mammograms and 3-D Tomosynthesis of the breast (s) were performed. CAD was performed. COMPARISON: 09/15/2021 FINDINGS: The breast composition is composed of scattered fibroglandular density. Scattered benign calcifications are seen. No dense spiculated masses or suspicious microcalcifications are identified. No architectural distortion is identified. There is no skin thickening or retraction. There has been no significant change since the prior study. BI/SCRN MAMM (CAD)W/DIAMANTE BILAT IMPRESSION: No mammographic signs of malignancy. Routine yearly mammograms recommended. ASSESSMENT CATEGORY: BIRADS Category 1: Negative. A letter regarding these results will be sent to the patient by the facility within 30 days. FOLLOW UP RECOMMENDATION: Yearly follow up mammogram recommended. (A) Approximately 10% of breast cancers are not detected by mammography. A normal mammogram should not delay biopsy of a clinically suspicious abnormality. Electronically Signed: Jurgen Simpson MD at 19:02 EDT ,
== END | disposition home or self-care (01) ==
LOC: OPBI 10:19
PROVIDERS: PCP Internal Medicine; Referring Provider Internal Medicine; Visit Provider Internal Medicine
DX: Z12.31 Encounter for screening mammogram for malignant neoplasm of breast (principal)
CPT/HCPCS: 77063; 77067

== ENCOUNTER → 2024-08-27 | Outpatient (CLI) | payer OTHER, SELFPAY ==
[2024-08-31 14:08] LABS: HPV APTIMA, High Risk Negative (Negative)
== END | disposition home or self-care (01) ==
PROVIDERS: PCP Internal Medicine; Referring Provider Advanced Practice Midwife; Visit Provider Advanced Practice Midwife
DX: Z12.4 Encounter for screening for malignant neoplasm of cervix (principal)
CPT/HCPCS: 87624; 88175; G0145

== ENCOUNTER → 2024-08-29 | Outpatient (CLI) | payer OTHER, SELFPAY ==
--- NOTE | 2024-08-29 12:09 | US_ITS ---
PROCEDURE: THYROID 08/29/2024 REASON FOR EXAM: NODULES TECHNIQUE: THYROID COMPARISON: None FINDINGS: Right thyroid lobe size: 5.4 x 1.9 x 2.4 cm Left thyroid lobe size: 4.7 x 1.8 x 1.9 cm Isthmus: 0.2 cm Background parenchymal echotexture is homogeneous. Nodules: Right thyroid lobe superior pole cystic nodule measuring 1.1 x 0.9 x 0.6 cm. Right thyroid lobe midpole slightly vascular complex nodule measuring 1.5 x 1.3 x 1.2 cm. Left thyroid lobe superior pole cystic nodule measuring 0.4 x 0.5 x 0.4 cm. Left thyroid lobe lower pole complex nodule measuring 0.7 x 0.6 x 0.3 cm. US/Thyroid IMPRESSION: Bilateral thyroid lobes cystic TR 1 nodules. Bilateral thyroid lobes complex TR 3 nodules. Reading Location: [place] [address]
--- NOTE | 2024-08-29 12:15 | BI_ITS ---
EXAM: SCRN MAMM (CAD)W/DIAMANTE BILAT DATE: 08/29/2024 CLINICAL HISTORY: F, Age 63 y/o , SCREENING TECHNIQUE: SCRN MAMM (CAD)W/DIAMANTE BILAT COMPARISON: Prior exam(s) dated 08/22/2023, 09/07/2021. FINDINGS: TISSUE DENSITY: There are scattered areas of fibroglandular density. Bilateral Breast Mammographic Findings: No significant masses, calcifications or other abnormalities are identified. BI/SCRN MAMM (CAD)W/DIAMANTE BILAT IMPRESSION: There is no mammographic evidence of malignancy. OVERALL FINAL ASSESSMENT BI-RADS 1: NEGATIVE. RECOMMENDATION: Routine annual follow-up in 1 Year A letter with findings and recommendations will be mailed to the patient. Reading Location: [id number]
== END | disposition home or self-care (01) ==
LOC: OPBI 12:06
PROVIDERS: PCP Internal Medicine; Referring Provider Internal Medicine; Visit Provider Internal Medicine
DX: Z12.31 Encounter for screening mammogram for malignant neoplasm of breast (principal)
CPT/HCPCS: 76536; 77063; 77067